=== PATIENT | male | born 1985 | race Caucasian/White ===

== ENCOUNTER 2016-12-26 20:43 | Emergency (ER) ==
[2016-12-26 20:46] VITALS: BP 148/72; TEMP 98.6; BMI 25.3
== END 2016-12-26 21:15 | disposition left against medical advice (07) ==
LOC: ED 20:43
DX: R10.32 Left lower quadrant pain (principal); N50.819 Testicular pain, unspecified; F17.210 Nicotine dependence, cigarettes, uncomplicated
CPT/HCPCS: 99281